=== PATIENT | male | born 1990 | race Caucasian/White ===

== ENCOUNTER 2016-11-10 17:11 | Emergency (ER) | payer OTHER ==
[~2016-11-10] VITALS: Ht 177.8 cm; Wt 90.9 kg
[2016-11-10 17:16] VITALS: BP 155/101; PULSE 87; RESP 18; O2SAT 96
--- NOTE | 2016-11-10 18:14 | ED.REPORT ---
HPI-Extremity Problem Upper Date of Service Nov 10, 2016 ED Provider: Edu Deleon MD Pt is a healthy 26 y/o male presenting to the ED due to right finger 5 injury which occurred today. 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 He denies other injury, numbness, weakness. Nursing Notes Stated Complaint: LACERATION RIGHT PINKEY FINGER Chief Complaint: Laceration Nursing Notes Reviewed: Yes Allergies: Coded Allergies: No Known Allergies (Unverified , 11/10/16) General Time Seen by MD: 18:08 Chief Complaint Finger injury right 5 Hx Obtained From: Patient Arrived By: Walk-in Onset Occurred: 1 - 4 hours ago Symptom Duration: Since onset Location: : Finger right 5 Quality: Painful Severity: Current: Mild Severity: Maximum: Moderate Recent Healthcare: No recent doctor visit, No recent hospitalization Similar Sx Previous: No Past Medical History Past Medical History Denies Past Surgical History None reported Smoking History Unknown if Ever Smoker Ambulatory Status Independent Review of Systems Constitutional: Denies: Chills, Fever Musculoskeletal: Reports: Extremity pain, Extremity swelling Skin: Denies Itching, Denies Rash Complete sys rev & neg: except as marked. Physical Exam Initial Vital Signs Vital Signs (First) Date Time Temp Pulse Resp B/P Pulse Ox O2 Delivery O2 Flow Rate FiO2 11/10/16 17:16 36.8 87 18 155/101 96 Room Air Initial VS: Reviewed, Vital signs normal Head / Eyes: Atraumatic, Normocephalic, PERRL ENT: Mucous membranes moist, Conjunctiva normal, No scleral icterus Neck: Supple, Full range of motion Respiratory: No respiratory distress Cardiovascular: Intact distal pulses Abdomen / GI: Soft, No distention Lower Extremities: Vascular intact, Neuro intact, No swelling Skin: Warm, Dry, No cyanosis Neurologic: Alert, Oriented, Nonfocal Psychiatric: Mood/affect normal, Behavior normal, Normal thought content General/Constitutional: Awake, Alert, No acute distress, Well appearing, Cooperative, Not toxic appearing Wrist / Hand: Full range of motion, No snuffbox tenderness, No deformity, Neurologic intact, Vascular intact, No ligamentous injury, Tendon function NL, No compartment syndrome, No clubbing/cyanosis Superficial laceration about 1 cm about the palmar aspect of the right pinky finger. Dry blood present without active bleeding. No exposed ligamentous or vascular structures. Appears relatively superficial Wound edges well approximated. Able to fully flex and extend the finger. Re-Eval/Medical Decision Med Decision/Clinical Course Patient presents with superficial laceration about his right fifth finger after pinching it between a container and table. There is a very superficial laceration that is well approximated without any active bleeding. There is no evidence of ligamentous or neurovascular injury. There is no evidence of fracture he is able to fully flex and extend his finger. He has good cap refill to the fingertip. I offered the patient x-rays to definitively rule out any fracture or foreign body however he declined. The wound was copiously irrigated and a sterile dressing was placed. Prior to discharge follow-up and return precautions were reviewed in detail with the patient who verbalized understanding and agreement with the plan. The patient was discharged in stable condition. Re-Evaluation/Progress : Time of Eval: 18:17 Re-Evaluation/Progress Note: Pt rechecked. Informed pt of plan for treatment. Pt understands and agrees with plan for treatment. F/U instructions and RTER warnings given. All questions addressed. Counseled Regarding: Diagnosis, Need for follow-up, When/why to return to ED Discharge & Departure Impression: Primary Impression: Injury of right little finger Encounter type: initial encounter Qualified Code: S69.91XA - Unspecified injury of right wrist, hand and finger(s), initial encounter Additional Impressions: Laceration of finger of right hand Encounter type: initial encounter Qualified Code: S61.219A - Laceration without foreign body of unspecified finger without damage to nail, initial encounter Finger pain, right Disposition: Home Discharge Condition All VS Reviewed: Yes Condition: Stable Patient Instructions: Acute Wounds (ED) Additional Instructions: Keep the wound clean and dry. Keep it covered while at work. Take 600 mg Ibuprofen every 6 hours as needed for pain. Return to the emergency department for signs of infection: redness, swelling, discharge of pus, pain, or for other concerning symptoms. Follow-up with a medical professional in 1 week for a wound recheck. Referrals: [facility] Scribe Attestation Portions of this note were transcribed by Kyle Lester. I, Dr. Deleon personally performed the history, physical exam and medical decision-making; I reviewed and confirmed the accuracy of the information in the transcribed note. Signed by Eriberto Reyna, 11/10/16 - 0 Edu Deleon MD Nov 10, 2016 18:14 KYLE LESTER Nov 10, 2016 18:18
[2016-11-10] MEDS ORDERED: TdaP Vaccine 0.5 mL Inj IM ONE (18:15)
[2016-11-10 18:38] VITALS: BP 144/88; PULSE 91; RESP 20; O2SAT 94
== END 2016-11-10 18:49 | disposition home or self-care (01) ==
LOC: SED 17:11
DX: S61.216A Laceration without foreign body of right little finger without damage to nail, initial encounter (principal); W23.0XXA Caught, crushed, jammed, or pinched between moving objects, initial encounter; Y93.89 Activity, other specified; Y92.69 Other specified industrial and construction area as the place of occurrence of the external cause; Y99.0 Civilian activity done for income or pay; Z23 Encounter for immunization